=== PATIENT | female | born 1935 | race Asian ===

== ENCOUNTER → 2017-08-25 | Outpatient (CLI) | payer MEDICARE, OTHER ==
[~2017-08-25] MED LIST: ALEN70TA48 PO; AMLO-511 PO; ATOR10TA84 PO; CALCIUM; METF850T2 PO; MULTI VITS; TELM40 PO
== END | disposition home or self-care (01) ==
LOC: RADPV 10:25
PROVIDERS: ATTEND Internal Medicine Cardiovascular Disease
DX: I08.3 Combined rheumatic disorders of mitral, aortic and tricuspid valves (principal)
CPT/HCPCS: 93306

== ENCOUNTER → 2018-06-25 | Outpatient (CLI) | payer MEDICARE, OTHER ==
[~2018-06-25] MED LIST changes: +ALEN70TA10 PO; -ALEN70TA48 PO; +METF-961 PO; -METF850T2 PO
== END | disposition home or self-care (01) ==
LOC: RADPV 09:15
PROVIDERS: ATTEND Internal Medicine Cardiovascular Disease
DX: I08.3 Combined rheumatic disorders of mitral, aortic and tricuspid valves (principal); Z95.0 Presence of cardiac pacemaker
CPT/HCPCS: 93306